=== PATIENT | female | born 1980 | race Caucasian/White ===

== ENCOUNTER 2018-04-05 10:24 | Emergency (ER) | payer BC, MEDICAID ==
[~2018-04-05] VITALS: Ht 162.6 cm; Wt 72.0 kg
[2018-04-05 10:28] VITALS: BP 143/77; PULSE 87; RESP 16; TEMP 98.5; O2SAT 97
[2018-04-05 10:41] VITALS: BP 143/77; PULSE 87; RESP 18; TEMP 98.5; O2SAT 97
[2018-04-05] MEDS ORDERED: EPINEPHrine HCL (1:1000) 1 MG/ML VIAL IM ONE (10:45)
[2018-04-05] MEDS ORDERED: predniSONE 20 MG TAB PO ONE (10:45)
[2018-04-05] MEDS ORDERED: diphenhydrAMINE HCL 50 MG CAP PO ONE (10:45)
[2018-04-05] MEDS ORDERED: FAMOTIDINE 20 MG TAB PO ONE (10:45)
[2018-04-05 10:55] VITALS: PULSE 87
[2018-04-05] MEDS ORDERED: CLAR10CA3 PO (10:56)
[2018-04-05] MEDS ORDERED: FAMO1TAB73 PO (10:56)
[2018-04-05] MEDS ORDERED: MEDR4PAK PO (10:56)
--- NOTE | 2018-04-05 10:57 | PD ---
HPI Chief Complaint: Skin Problem Time Seen by Provider: 10:40 Travel History International Travel<30 days: No Contact w/Intl Traveler<30days: No Traveled to known affect area: No History of Present Illness HPI Patient was prescribed amoxicillin for an abscessed tooth. This was approximately almost a week ago, she has been taking it but every time she takes it that day she developed some sort of a rash somewhere in her body. Usually seems to be self limiting and just applying ice to the area locally will get the rash to go away. However today approximately day 7 of taking it, she took the pill and approximately an hour later she developed rash diffusely throughout her trunk , arms and extremities and felt like she was on fire as well as itchy. No alleviating or aggravating factors. Patient denies any associated factors such as fever, cough, sore throat, shortness of breath, chest pain, back pain, flank pain, nausea vomiting or diarrhea, or abdominal pain. Patient states allergy to Dilaudid, and is adding amoxicillin as she believes this is what causing today's rash Past medical history significant for appendectomy, cholecystectomy, she is on medical marijuana, has a history of chronic gastritis and IBS [facility] Past Medical History Gastrointestinal Disorders: Yes (CHRONIC GASTRITIS; IBS) Tetanus Vaccination: > 5 Years Influenza Vaccination: No ?: Not LMP: 03/26/18 Past Surgical History Appendectomy: Yes (2003) Cholecystectomy: Yes (2011) Social History Alcohol Use: No Tobacco Use: Yes Substance Use: Yes (medical marijuana) Allergies-Medications (Allergen,Severity, Reaction): Coded Allergies: amoxicillin (Verified Allergy, Severe, Rash, 04/05/18) hydromorphone (Verified Allergy, Severe, Rash, 04/05/18) Reported Meds & Prescriptions Reported Meds & Active Scripts Active No Active Prescriptions or Reported Medications Review of Systems General / Constitutional: No: Fever Eyes: No: Visual changes HENT: No: Headaches Cardiovascular: No: Chest Pain or Discomfort Respiratory: No: Shortness of Breath Gastrointestinal: No: Abdominal Pain Genitourinary: No: Dysuria Musculoskeletal: No: Pain Skin: Positive Rash, Positive Itching Neurologic: No: Weakness Psychiatric: No: Depression Endocrine: No: Polydipsia Hematologic/Lymphatic: No: Easy Bruising Physical Exam Narrative GENERAL: SKIN: Warm and dry. Generalized hives noted throughout patient's trunk back and extremities HEAD: Atraumatic. Normocephalic. EYES: Pupils equal and round. No scleral icterus. No injection or drainage. ENT: No nasal bleeding or discharge. Mucous membranes pink and moist. No lip/ tongue/uvula edema noted NECK: Trachea midline. No JVD. No stridor CARDIOVASCULAR: Regular rate and rhythm. RESPIRATORY: No accessory muscle use. Clear to auscultation. Breath sounds equal bilaterally. No wheezing GASTROINTESTINAL: Abdomen soft, non-tender, nondistended. MUSCULOSKELETAL: Extremities without clubbing, cyanosis, or edema. No obvious deformities. NEUROLOGICAL: Awake and alert. No obvious cranial nerve deficits. Motor grossly within normal limits. Five out of 5 muscle strength in the arms and legs. Normal speech. PSYCHIATRIC: Appropriate mood and affect; insight and judgment normal. Data Data Last Documented VS Vital Signs Date Time Temp Pulse Resp B/P (MAP) Pulse Ox O2 Delivery O2 Flow Rate FiO2 04/05/18 10:41 87 18 04/05/18 10:41 98.5 143/77 (99) 97 Room Air Orders Orders Prednisone (Deltasone) (04/05/18 10:45) Epinephrine (1:1000) Inj (Adrenalin (1:1 (04/05/18 10:45) Famotidine (Pepcid) (04/05/18 10:45) MDM Medical Decision Making Medical Screen Exam Complete: Yes Emergency Medical Condition: Yes Medical Record Reviewed: Yes Differential Diagnosis Allergic reaction versus angioedema versus hives versus urticaria versus psoriasis Narrative Course Clinically the patient has hives secondary to allergic reaction, it is most likely related to amoxicillin as it seems to have progressively worsen over a short period of time. Over the patient is hemodynamically stable, also showing no evidence of any respiratory distress, tachypnea, hypoxemia, stridor, no angioedema or wheezing. Diagnosis Primary Impression: Generalized allergic reaction Patient Instructions: General Allergic Reaction (ED), General Instructions Scripts Famotidine (Pepcid) 40 Mg Tab 40 MG PO DAILY for 10 Days, #10 TAB 0 Refills Prov: Milton Nix MD 04/05/18 Loratadine (Claritin) 10 Mg Cap 10 MG PO DAILY for Allergy Management for 10 Days, #10 CAP 0 Refills Prov: Milton Nix MD 04/05/18 Methylprednisolone Dosepak (Medrol Dosepak) 4 Mg Dspk 4 MG PO DIRECTED, #1 DSPK 0 Refills Per Pharmacist direction Prov: Milton Nix MD 04/05/18 Disposition: 01 DISCHARGE HOME Condition: Stable Milton Nix MD April 05, 2018 10:56
[2018-04-05 11:16] VITALS: BP 112/79
[2018-04-06] MEDS ORDERED: EPIP0.3I IM (01:58)
== END 2018-04-05 11:16 | disposition home or self-care (01) ==
LOC: NEPD 10:24
DX: T78.40XA Allergy, unspecified, initial encounter (principal); Z72.0 Tobacco use
CPT/HCPCS: 96372; 99283; J0171; J7512; Q0163

== ENCOUNTER 2018-04-05 23:58 | Emergency (ER) | payer BC, MEDICAID ==
[~2018-04-05 23:58] MED LIST: CLAR10CA3 PO; FAMO1TAB73 PO; MEDR4PAK PO
[2018-04-06] VITALS: BP 137/81; PULSE 82; RESP 18; TEMP 97.9; O2SAT 99
[2018-04-06] MEDS ORDERED: diphenhydrAMINE HCL 50 MG/ML VIAL IVP ONE (00:15)
[2018-04-06] MEDS ORDERED: EPINEPHrine HCL (1:1000) 1 MG/ML VIAL IM ONE (00:15)
[2018-04-06] MEDS ORDERED: FAMOTIDINE 20 MG/2 ML VIAL IV PUSH ONE (00:15)
[2018-04-06] MEDS ORDERED: SODIUM CHLOR 0.9% 1000 ML INJ 1,000 ML IV SCH (00:15)
[2018-04-06] MEDS ORDERED: SODIUM CHLORIDE 0.9% FLUSH 10 ML FLUSH IV FLUSH PRN (00:15)
--- NOTE | 2018-04-06 00:21 | PD ---
HPI Chief Complaint: Allergic/Adverse Reaction Time Seen by Provider: 00:15 Travel History International Travel<30 days: No Contact w/Intl Traveler<30days: No History of Present Illness HPI 37-year-old female presents to the emergency department by private transportation for allergic reaction. Patient states symptoms began this morning with erythematous rash with pruritus and was seen in the emergency department received oral prednisone 60 mg injection of epinephrine 0.3 cc of 1- 1000 epinephrine and Benadryl 50 mg by mouth as well as Pepcid 40 mg by mouth. Patient states symptoms improved and was discharged with prescription for Pepcid Medrol Dosepak and EpiPen. Patient states this evening she has recurrence of her symptoms took Benadryl prior to arrival to the emergency department did not use her EpiPen and has been taking the steroid as prescribed. Patient also notes some lip swelling at this time. Patient states she has had no new foods beverages lotions detergents linens clothing peds furniture dander carpeting or other allergens only amoxicillin which she reports that in the fall she had a course of Augmentin and had a similar type rash which is worse at this time and went ahead and took amoxicillin and she denies she is allergic to the additive for Augmentin clavulanic acid or to the amoxicillin itself. Patient does not report any near syncope syncope nausea vomiting chest pain shortness of breath wheezing or abdominal cramping. Patient denies . [facility] Past Medical History Narrative Medical Gastritis appendectomy, tobacco use, marijuana use; nursing notes reviewed Gastrointestinal Disorders: Yes (CHRONIC GASTRITIS; IBS) Influenza Vaccination: No ?: Not Past Surgical History Appendectomy: Yes (2003) Cholecystectomy: Yes (2011) Social History Alcohol Use: No Tobacco Use: Yes (5 CIG/DAY) Substance Use: Yes (medical marijuana) Allergies-Medications (Allergen,Severity, Reaction): Coded Allergies: amoxicillin (Verified Allergy, Severe, Rash, 04/05/18) hydromorphone (Verified Allergy, Severe, Rash, 04/05/18) Reported Meds & Prescriptions Reported Meds & Active Scripts Active Pepcid (Famotidine) 40 Mg Tab 40 Mg PO DAILY 10 Days Claritin (Loratadine) 10 Mg Cap 10 Mg PO DAILY 10 Days Medrol Dosepak (Methylprednisolone) 4 Mg Dspk 4 Mg PO DIRECTED Per Pharmacist direction Review of Systems Except as stated in HPI: all other systems reviewed are Neg Physical Exam Narrative GENERAL: Well-developed well-nourished female no acute distress no respiratory distress; no stridor or hoarseness SKIN: Warm and dry. Diffuse erythematous rash with urticaria HEAD: Normocephalic. EYES: No scleral icterus. No injection or drainage. ENT: Airway is patent mucous membranes moist no discernible angioedema patient reports some swelling of the lower lip NECK: Supple, trachea midline. No JVD or lymphadenopathy. CARDIOVASCULAR: Regular rate and rhythm without murmurs, gallops, or rubs. RESPIRATORY: Breath sounds equal bilaterally. No accessory muscle use. GASTROINTESTINAL: Abdomen soft, non-tender, nondistended. MUSCULOSKELETAL: No cyanosis, or edema. BACK: Nontender without obvious deformity. No CVA tenderness. Data Data Last Documented VS Vital Signs Date Time Temp Pulse Resp B/P (MAP) Pulse Ox O2 Delivery O2 Flow Rate FiO2 04/06/18 01:52 78 17 125/72 (89) 100 Room Air 04/06/18 00:00 97.9 Orders Orders Ecg Monitoring (04/06/18 00:15) Iv Access Insert/Monitor (04/06/18 00:15) Oximetry (04/06/18 00:15) Diphenhydramine Inj (Benadryl Inj) (04/06/18 00:15) Famotidine Inj (Pepcid Inj) (04/06/18 00:15) Sodium Chlor 0.9% 1000 Ml Inj (Ns 1000 M (04/06/18 00:15) Sodium Chloride 0.9% Flush (Ns Flush) (04/06/18 00:15) Epinephrine (1:1000) Inj (Adrenalin (1:1 (04/06/18 00:15) MDM Medical Decision Making Medical Screen Exam Complete: Yes Emergency Medical Condition: Yes Medical Record Reviewed: Yes Differential Diagnosis Allergic reaction, idiopathic urticaria, angioedema; no noted anaphylaxis Narrative Course Patient placed on monitor IV access obtained; patient administered medication epinephrine 1-1000, 0.3 cc IM, IV Benadryl 25 mg IV IV Pepcid 20 mg IV will defer Solu-Medrol at this time until observed response that she has received prednisone 60 mg orally today as of 11 AM and her first daily dose of Medrol Dosepak has been completed At 1:57 AM patient is clinically improved and stable for outpatient management; patient provided prescription for EpiPen Diagnosis Primary Impression: Allergic reaction to penicillin Qualified Codes: T36.0X5D - Adverse effect of penicillins, subsequent encounter Additional Impression: Allergic reaction, urticaria Referrals: Primary Care Physician call for appointment Patient Instructions: General Instructions Additional Instructions: Continue current medications as presently prescribed Follow-up with your primary care provider Do not take any penicillin products for amoxicillin Use EpiPen as prescribed as needed and return to the nearest emergency depart Med/Other Pt SpecificInfo: Prescription(s) given Scripts Epinephrine Inj (Epipen 2-Edgar Inj) 0.3 Mg/0.3 Ml Pfpen 0.3 MG IM ONCE Y for ALLERGIC REACTION, #1 PACK 1 Refill Prov: Michelle Oneill MD 04/06/18 Disposition: 01 DISCHARGE HOME Condition: Stable Michelle Oneill MD April 06, 2018 00:21
[2018-04-06 00:43] VITALS: RESP 17; O2SAT 98
[2018-04-06 01:52] VITALS: BP 125/72; PULSE 78; RESP 17; O2SAT 100
[2018-04-06] MEDS ORDERED: EPIP0.3I IM (01:58)
== END 2018-04-06 02:16 | disposition home or self-care (01) ==
LOC: NEPC 23:58
DX: L50.0 Allergic urticaria (principal); T36.0X5A Adverse effect of penicillins, initial encounter; F17.210 Nicotine dependence, cigarettes, uncomplicated; F12.90 Cannabis use, unspecified, uncomplicated
CPT/HCPCS: 96361; 96372; 96374; 96375; 99284; J0171; J1200; J7030